=== PATIENT | female | born 1990 | race Caucasian/White ===

== ENCOUNTER 2018-06-22 16:09 | Emergency (ER) | payer OTHER, MEDICAID, SELFPAY ==
--- NOTE | 2018-06-22 16:16 | DI.RAD.S_ITS ---
PROCEDURE: XR FOOT LT MIN 3V INDICATIONS: Possible fracture. TECHNIQUE: 3 views of the foot were acquired. COMPARISON: [facility], CR, XR FOOT RT MIN 3V, 06/22/2018, 16:02. FINDINGS: Bones: No fractures or dislocations. There is mild periosteal thickening along the 4th metatarsal shaft. No suspicious bony lesions. Soft tissues: No tibiotalar joint effusion. Achilles tendon appears normal. IMPRESSION: 1. No fracture or dislocation. 2. Mild periosteal thickening along the 4th metatarsal shaft may represent a stress reaction. No discrete fracture line identified. Dictated by: Raffy Oneill M.D. on 06/22/2018 at 17:00 Approved by: Raffy Oneill M.D. on 06/22/2018 at 17:01
--- NOTE | 2018-06-22 16:16 | DI.RAD.S_ITS ---
PROCEDURE: XR FOOT RT MIN 3V INDICATIONS: Possible fracture. TECHNIQUE: 3 views of the foot were acquired. COMPARISON: [facility], CR, XR FOOT LT MIN 3V, 06/22/2018, 16:05. FINDINGS: Bones: No fractures or dislocations. No suspicious bony lesions. Soft tissues: No tibiotalar joint effusion. Achilles tendon appears normal. IMPRESSION: 1. No fracture or dislocation. Dictated by: Raffy Oneill M.D. on 06/22/2018 at 16:58 Approved by: Raffy Oneill M.D. on 06/22/2018 at 17:00
[2018-06-22 16:17] VITALS: BP 171/93; PULSE 97; RESP 17; TEMP 36.5; O2SAT 17; BMI 23.3
--- NOTE | 2018-06-22 16:41 | ED.LOWEXIN ---
HPI - Extremity Injury (Lower) <Sameera Ambriz PA-C - Last Filed: 06/22/18 21:54> General Chief Complaint: Extremity Injury, Lower Stated Complaint: BOTH FEET THINKS ARE BROKEN Time Seen by Provider: 06/22/18 16:32 Source: patient Mode of arrival: ambulatory Limitations: no limitations History of Present Illness HPI Narrative: This healthy 27-year-old female injured both lower extremities 2 days ago. [place] because she had a flat tire. It was dark, and she slipped on a slope, catching her toes and feet on the rocks. she states that she bumped her knees, shins, and L. thigh as well. she has been walking or hobbling with a lot of pain in her feet. She denies any other injuries. She states that her left foot has felt kind of cold and numb at times. She took 800 mg of ibuprofen and also took some a friend's Percocet a couple of hours ago which has helped pain. She denies any possibility of , LMP last week. She states that has been more than 10 years since last tetanus vaccine . She reports that she is healthy, denies any history of drug use. DANIELE Report notes history of HTN, poly substance abuse including methamphetamines, delusional disorder, anxiety, acid reflux Related Data Home Medications Medication Instructions Recorded Confirmed AMOXICILLIN/CLAVULANATE POTASS 875 mg PO BID #0 03/09/10 (Augmentin) IBUPROFEN (Motrin / Advil) 800 mg PO PRN #0 03/09/10 SULFAMETHOX/TRIMETH 1 tab PO BID #0 03/09/10 (Sulfamethoxazole-Tmp Ds Tablet) Allergies Allergy/AdvReac Type Severity Reaction Status Date / Time Sulfa (Sulfonamide Allergy Verified 06/22/18 17:24 Antibiotics) Review of Systems <Sameera Ambriz PA-C - Last Filed: 06/22/18 21:54> Review of Systems All systems reviewed & are unremarkable except as noted in HPI and below Exam <Sameera Ambriz PA-C - Last Filed: 06/22/18 21:54> Initial Vital Signs Initial Vital Signs: Vital Signs Temperature 97.7 F 06/22/18 16:17 Pulse Rate 97 H 06/22/18 16:17 Respiratory Rate 17 06/22/18 16:17 Blood Pressure 171/93 H 06/22/18 16:17 Pulse Oximetry 17 L 06/22/18 16:17 GENERAL APPEARANCE: Patient sitting comfortably, in no distress. LUNGS: Clear to auscultation bilaterally. HEART: Rate and rhythm regular without murmur, normal S1 and S2, no S3 or S4. DERMATOLOGIC: Patchy ecchymoses over both knees, shins, anterior ankles and feet. There also numerous scabbed abrasions, no open lesions. There is a tender soft nodular area over the left lateral thigh near the ecchymoses. MUSCULOSKELETAL: mild tenderness over all of the ecchymotic areas, but no point tenderness over bony prominence or joints aside from the feet. She is tender over all of the distal toes as well as the left 3rd, 4th, and 5th metatarsals, most proximally at the 5th metatarsal. No tenderness over the ankle. On the right she is tender over all of the distal toes and a little bit over the 4th and 5th distal metatarsals. Limited range of motion of the toes secondary to tenderness. She is able to flex and extend the ankles with tenderness. Normal range of motion of the knees. NEUROVASCULAR: Sensation grossly intact in the lower extremities. PT and DP pulses easily audible with Doppler ( PT palpable, DP difficult to assess secondary to tenderness with palpation ). <Vianca Arcos DO - Last Filed: 06/23/18 10:20> Initial Vital Signs Initial Vital Signs: Vital Signs Temperature 97.7 F 06/22/18 16:17 Pulse Rate 97 H 06/22/18 16:17 Respiratory Rate 17 06/22/18 16:17 Blood Pressure 171/93 H 06/22/18 16:17 Pulse Oximetry 17 L 06/22/18 16:17 Course <Sameera Ambriz PA-C - Last Filed: 06/22/18 21:54> Additional Information: Patient reported feeling mostly pain with ambulating on L. foot where there is some nonspecific inflammation (but no fx) around the 4th MT. Given this, she was placed in walking boot and crutches and was able to ambulate comfortably. Advised f/u with PCP to assess progress next week as acute pain and swelling improve as she may need further imaging if not better. She is agreeable. Orders Ordered: Discontinued Medications Diphtheria/Tetanus/Acell Pertussis (Adacel) 0.5 ml IM .ONCE ONE Stop: 06/22/18 17:20 Last Admin: 06/22/18 17:21 Dose: 0.5 ml Ibuprofen (Advil) 400 mg PO NOW ONE Stop: 06/22/18 17:20 Last Admin: 06/22/18 17:22 Dose: 400 mg Vital Signs - 8 hr 06/22/18 16:17 06/22/18 18:18 Temperature 97.7 F Pulse Rate 97 H 94 H Respiratory Rate 17 16 Blood Pressure 171/93 H Blood Pressure [Left Arm] 126/87 Pulse Oximetry 17 L <Vianca Arcos DO - Last Filed: 06/23/18 10:20> Orders Ordered: Discontinued Medications Diphtheria/Tetanus/Acell Pertussis (Adacel) 0.5 ml IM .ONCE ONE Stop: 06/22/18 17:20 Last Admin: 06/22/18 17:21 Dose: 0.5 ml Ibuprofen (Advil) 400 mg PO NOW ONE Stop: 06/22/18 17:20 Last Admin: 06/22/18 17:22 Dose: 400 mg Vital Signs - 8 hr 06/22/18 16:17 06/22/18 18:18 Temperature 97.7 F Pulse Rate 97 H 94 H Respiratory Rate 17 16 Blood Pressure 171/93 H Blood Pressure [Left Arm] 126/87 Pulse Oximetry 17 L MDM - Extremity Injury (Lower) <Sameera Ambriz PA-C - Last Filed: 06/22/18 21:54> Imaging Data feet: Radiologist's impression: [address] [address] XRay Report Signed Patient: Melissa Chowdary BMR#: [id number] : 1990Acct:[id number] Age/Sex: 27 / FDate of Service: 06/22/18 Loc: ED Accession Number: [id number] Procedure: XR foot RT min 3V Ordering Provider: Sameera Ambriz P.A-C PROCEDURE: XR FOOT RT MIN 3V INDICATIONS: Possible fracture. TECHNIQUE: 3 views of the foot were acquired. COMPARISON: [facility], MAU, XR FOOT LT MIN 3V, 06/22/2018, 16:05. FINDINGS: Bones: No fractures or dislocations. No suspicious bony lesions. Soft tissues: No tibiotalar joint effusion. Achilles tendon appears normal. IMPRESSION: 1. No fracture or dislocation. Dictated by: Raffy Oneill M.D. on 06/22/2018 at 16:58 Approved by: Raffy Oneill M.D. on 06/22/2018 at 17:[address] [address] XRay Report Signed Patient: Melissa Chowdary BMR#: [id number] : 1990Acct:[id number] Age/Sex: 27 / FDate of Service: 06/22/18 Loc: ED Accession Number: [id number] Procedure: XR foot LT min 3V Ordering Provider: Sameera Ambriz P.A-C PROCEDURE: XR FOOT LT MIN 3V INDICATIONS: Possible fracture. TECHNIQUE: 3 views of the foot were acquired. COMPARISON: [facility], , XR FOOT RT MIN 3V, 06/22/2018, 16:02. FINDINGS: Bones: No fractures or dislocations. There is mild periosteal thickening along the 4th metatarsal shaft. No suspicious bony lesions. Soft tissues: No tibiotalar joint effusion. Achilles tendon appears normal. IMPRESSION: 1. No fracture or dislocation. 2. Mild periosteal thickening along the 4th metatarsal shaft may represent a stress reaction. No discrete fracture line identified. Dictated by: Raffy Oneill M.D. on 06/22/2018 at 17:00 Approved by: Raffy Oneill M.D. on 06/22/2018 at 17:01 Discharge Plan Departure Patient Disposition: Home Clinical Impression: Contusion of foot, left, Contusion of foot, right Discharge Date/Time: 06/22/18 18:36 Interventions: ED Discharge Assessment Last Done: 06/22/18 18:36 Instructions: DI for Foot Pain Activity Restrictions/Additional Instructions: You do not have any new fractures that are showing up on your x-rays, however you have some inflammation around 1 of the outside bones in your left foot. Due to that and all of the contusions on your feet, we have given you a walking boot to keep pressure off of those bones. Please wear it at all times when you are bearing any weight, and use the crutches to help bear less weight on your right side. This should help the pain a lot. Please continue 800mg ibuprofen everyn 8 hours for pain and you can also add tylenol as needed. follow up with your PCP for recheck next week. As we talked about, you may need further testing or imaging if not getting better. Please return if you have any acutely worsening symptoms in the interim. Prescriptions: No Action AMOXICILLIN/CLAVULANATE POTASS (Augmentin) 875 mg PO BID Qty: 0 RF: 0 SULFAMETHOX/TRIMETH (Sulfamethoxazole-Tmp Ds Tablet) 1 tab PO BID Qty: 0 RF: 0 IBUPROFEN (Motrin / Advil) 800 mg PO PRN Qty: 0 RF: 0 Referrals: [facility], [facility] [Other] <Vianca Arcos DO - Last Filed: 06/23/18 10:20> Cosign ED Attending Aleeature Attestation: I was immediately available in the department for consultation. Documentation has been reviewed. I agree with assessment and plan.
--- NOTE | 2018-06-22 17:17 | PC.NURSE ---
pt reports, she was in [facility],when her car broke down, she then trying to get help and she slipped and fell, occured 4 days ago. now with anterior bilateral lower leg with multiple abrasions and swelling. able to ambulate slowly but steady, has been taking ibuprofen relief captain for discomfort. unknown tetanus. female at bs during the interview.
[2018-06-22] MEDS: TET,DIPH,PERTUSS(ACELL),VAC/PF 0.5 ML SYRINGE IM (17:21)
[2018-06-22] MEDS: IBUPROFEN 400 MG TABLET PO (17:22)
[2018-06-22 18:18] VITALS: BP 126/87; PULSE 94; RESP 16
--- NOTE | 2018-06-22 18:36 | PC.NURSE ---
tolerated cirilo boot left foot, tolerated crutches.
--- NOTE | 2018-06-27 16:24 | PC.NURSE ---
Attempted follow up with pt,no answer
== END 2018-06-22 18:36 | disposition home or self-care (01) ==
PROVIDERS: Emergency Provider Internal Medicine
DX: S90.31XA Contusion of right foot, initial encounter (principal); W01.0XXA Fall on same level from slipping, tripping and stumbling without subsequent striking against object, initial encounter
CPT/HCPCS: 73630; 90471; 99283; 90715